=== PATIENT | male | born 1970 | race Caucasian/White ===

== ENCOUNTER → 2017-03-19 | Outpatient (CLI) | payer OTHER ==
[~2017-03-19] MED LIST: CYCL10TA9 PO; HYDR-3816 PO; SERT100T PO
--- NOTE | 2017-03-19 16:43 | Diagnostic Imaging Report ---
INDICATION: Right knee pain. AP, oblique, and lateral views of the right knee are obtained. No fracture or acute bony abnormality is seen. There is minimal posterior patellar spurring. There is no significant medial or lateral joint space osteophyte formation or significant joint space narrowing. There is no overt joint effusion. IMPRESSION: Minor degenerative findings in the patellofemoral joint. No acute bony abnormality or joint effusion. Dictated by: Dictated on workstation # [id number]
== END ==
LOC: RAD 11:48
PROVIDERS: ATTEND Family Medicine
DX: M25.561 Pain in right knee (principal)
CPT/HCPCS: 73562

== ENCOUNTER 2019-12-12 14:02 | Emergency (ER) | payer OTHER ==
[~2019-12-12] VITALS: Ht 185.4 cm; Wt 92.2 kg
[~2019-12-12 14:02] MED LIST changes: +HYDR-34 PO; -HYDR-3816 PO
--- NOTE | 2019-12-12 14:55 | ED GI ---
General Chief Complaint: Rect Problems Stated Complaint: RECTAL SWELLING Nursing Triage Note: AMB TO ED FROM [facility] HAS HEMMORROIDS AND SENT FOR ER TO TAKE CARE OF HEMMORROID Sepsis Screen: No Definite Risk Source of Information: Patient Exam Limitations: No Limitations History of Present Illness Date Seen by Provider: Dec 12, 2019 Time Seen by Provider: 14:34 Initial Comments Here with complaint of hemorrhoid. sit here from urgent care after being evaluated there. They were concerned about the size and wanted further evaluation. No bleeding. Not significantly in pain but is concerned due to persistence. Unsure what caused it but has had upper respiratory infection and he did have quite a bit of coughing. This has improved. Timing/Duration: Other (2 weeks) Severity/Quality: Mild Location: Other (perirectal right side) Radiation: No Radiation Activities at Onset: None Associated Symptoms: No Fever/Chills, No Nausea/Vomiting Allergies and Home Medications Allergies Coded Allergies: No Known Drug Allergies (Unverified , 12/27/15) Home Medications Cyclobenzaprine HCl 10 Mg Tablet, 10 MG PO Q8H PRN for SPASMS Prescribed by: AMANDEEP TIM on 12/27/15 1444 Hydrocodone Bit/Acetaminophen 1 Each Tablet, 1 EACH PO Q6H Prescribed by: AMANDEEP TIM on 12/27/15 1444 Patient Home Medication List Home Medication List Reviewed: Yes Review of Systems Review of Systems Constitutional: no symptoms reported Respiratory: No Symptoms Reported Cardiovascular: No Symptoms Reported Gastrointestinal: See HPI; Denies Abdominal Pain; Other (hemorrhoid) Past Qhvihwn-Xavmmh-Glpylq Hx Past Med/Social Hx: Reviewed Nursing Past Med/Soc Hx Patient Social History Alcohol Use: Occasionally Uses Alcohol Beverage of Choice: Beer Recreational Drug Use: No Smoking Status: Never a Smoker Recent Foreign Travel: No Contact w/Someone Who Travel: No Recent Infectious Disease Expo: No Immunizations Up To Date Tetanus Booster (TDap): Less than 5yrs Past Medical History Surgeries: Yes (LYMPHOMA) Vasectomy Respiratory: No Cardiac: No Neurological: No Gastrointestinal: No Musculoskeletal: No Endocrine: No Cancer: No Psychosocial: Yes PTSD Family Medical History Reviewed Nursing Family Hx No Pertinent Family Hx Physical Exam Vital Signs Vital Signs - First Documented 12/12/19 14:08 Temp 36.8 Pulse 62 Resp 18 B/P (MAP) 141/89 (106) Pulse Ox 99 O2 Delivery Room Air Capillary Refill : Less Than 3 Seconds Height/Weight/BMI Height: 6'2" Weight: 209lbs. oz. 94.823310ej; 26.00 BMI Method: General Appearance: WD/WN, no apparent distress Respiratory: lungs clear, normal breath sounds Cardiovascular: regular rate, rhythm, no murmur Rectal: hemorrhoids (thrombosed hemorrhoid along the right border approximately 1 x 2 cm and nonbleeding.) Neurologic/Psychiatric: alert, oriented x 3 Skin: normal color, warm/dry Progress/Results/Core Measures Results/Orders Vital Signs/I&O 12/12/19 14:08 Temp 36.8 Pulse 62 Resp 18 B/P (MAP) 141/89 (106) Pulse Ox 99 O2 Delivery Room Air Blood Pressure Mean: 106 Progress Progress Note : Progress Note Seen and evaluated. Rectal exam performed. Hemorrhoid noted but no mass noted. No nodularity to the prostate. I did discuss with the patient multiple options. At this point I believe it is most appropriate for topical Anusol and then follow-up if not improving. He agreed. Discharged home with return precautions. Patient verbalize understanding instructions and agreement with plan. Departure Impression Primary Impression: Thrombosed external hemorrhoid Disposition: HOME, SELF-CARE Condition: Stable Departure-Patient Inst. Decision time for Depature: 14:54 Referrals: NO,LOCAL PHYSICIAN (PCP/Family) Primary Care Physician Patient Instructions: Hemorrhoids (DC) Add. Discharge Instructions: All discharge instructions reviewed with patient and/or family. Voiced understanding. Use medication as directed. You may also take MiraLAX or generic one half to one capful twice daily as needed to keep stools soft. You may increase or decrease dose to keep stool in soft range. You may use sitz bath to cleaning after bowel movements. You may get that at the local pharmacy such as [facility]. Follow-up with the [facility] and schedule colonoscopy. Return for worse pain, bleeding, difficulties with bowel movements or other concerns as needed. Scripts Hydrocortisone (Anusol-Hc) 30 Gm Cream..g. 30 GM RC TID, #1 TUBE 1 Refill Prov: AMANDEEP TIM MD 12/12/19 AMANDEEP TIM MD Dec 12, 2019 14:55
[2019-12-12] MEDS ORDERED: HYDR30CR71 RC (14:59)
[2019-12-12 15:05] VITALS: BP 141/89
== END 2019-12-12 15:06 | disposition home or self-care (01) ==
LOC: EDUNIT# 14:02 → ER 14:03
DX: K64.5 Perianal venous thrombosis (principal)
CPT/HCPCS: 99282

== ENCOUNTER → 2021-07-30 | Outpatient (CLI) | payer OTHER ==
[~2021-07-30] MED LIST changes: +HYDR30CR71 RC
== END ==
LOC: LABNPT 06:19
PROVIDERS: ATTEND Nurse Practitioner
DX: Z20.822 Contact with and (suspected) exposure to COVID-19 (principal); G47.30 Sleep apnea, unspecified
CPT/HCPCS: 87635

== ENCOUNTER 2021-08-01 20:48 | Outpatient (CLI) | payer OTHER | END 2021-08-02 06:42 | disposition home or self-care (01) | LOC: SLEEP 20:48 | PROVIDERS: ATTEND Nurse Practitioner | DX: G47.61 Periodic limb movement disorder (principal); G47.10 Hypersomnia, unspecified; G47.00 Insomnia, unspecified; G47.30 Sleep apnea, unspecified | CPT/HCPCS: 95810 ==

== ENCOUNTER → 2022-07-15 | Outpatient (RCR) | payer OTHER ==
[~2022-07-15] MED LIST changes: +CYCL10TA25 PO; -CYCL10TA9 PO
== END | disposition home or self-care (01) ==
PROVIDERS: ATTEND Nurse Practitioner
DX: M50.93 Cervical disc disorder, unspecified, cervicothoracic region (principal)

== ENCOUNTER 2022-08-07 08:04 | Outpatient (RCR) | payer OTHER | END 2022-08-14 | disposition home or self-care (01) | PROVIDERS: ATTEND Nurse Practitioner | DX: M50.93 Cervical disc disorder, unspecified, cervicothoracic region (principal) ==